=== PATIENT | male | born 1950 | race African-American/Black ===

== ENCOUNTER 2017-09-30 21:31 | Emergency (ER) | payer MEDICARE ==
[2017-09-30 21:58] LABS: ADD MAN DIFF? NO
[2017-09-30 22:01] LABS: BASO % 1 % (0-3); EOS # 0.1 x10^3/uL (0.0-0.7); EOS % 2 % (0-3); HEMATOCRIT 41.7 % (39.0-53.0); HEMOGLOBIN 14.3 g/dL (13.0-17.5); LYMPH # 2.5 x10^3/uL (1.0-4.8); LYMPH % 40 % (24-48); MEAN CORPUSCULAR HEMOGLOBIN 28 pg (25-35); MEAN CORPUSCULAR HGB CONC 34 g/dL (31-37); MEAN CORPUSCULAR VOLUME 82 fL (79-100); MONO # 0.6 x10^3/uL (0.0-1.1); MONO % 10 % (0-9); NEUT % 47 % (31-73); PLATELET COUNT 262 x10^3/uL (140-400); RED BLOOD COUNT 5.07 x10^6/uL (4.30-5.70); RED CELL DISTRIBUTION WIDTH 16.2 % (11.5-14.5); WHITE BLOOD COUNT 6.4 x10^3/uL (4.0-11.0)
[2017-09-30 22:03] LABS: BILIRUBIN,URINE SMALL (NEG); CLARITY,URINE CLEAR; COLOR,URINE YELLOW; GLUCOSE,URINE NEGATIVE (NEG); NITRITE,URINE NEGATIVE (NEG); PH,URINE 5.5; PROTEIN,URINE 30 mg/dL (NEG-TRACE)
[2017-09-30 22:14] LABS: ANION GAP 11 (6-14); BLOOD UREA NITROGEN 22 mg/dL (8-26); BUN/CREATININE RATIO 14 (6-20); CALCIUM 8.8 mg/dL (8.5-10.1); CARBON DIOXIDE 24 mmol/L (21-32); CHLORIDE 105 mmol/L (98-107); CREATININE 1.6 mg/dL (0.7-1.3); GFR 52.1; GLUCOSE 98 mg/dL (70-99); POTASSIUM 4.1 mmol/L (3.5-5.1); SODIUM 140 mmol/L (136-145)
[2017-09-30 22:15] LABS: BACTERIA,URINE 0 /HPF (0-FEW); HYALINE CASTS, URINE FEW /HPF; RBC,URINE OCC /HPF (0-2); SQUAMOUS EPITHELIAL CELL,UR MOD /LPF; WBC,URINE 20-40 /HPF (0-4)
[2017-09-30 22:16] LABS: BARBITURATES NEG (NEG); BENZODIAZEPINES NEG (NEG); CANNABINOIDS NEG (NEG); COCAINE POS (NEG); METHADONE NEG (NEG); OPIATES NEG (NEG); PHENCYCLIDINE NEG (NEG)
[2017-09-30 22:17] LABS: AGAP ISTAT 14 mmol/L (6-14); BUN ISTAT 24 mg/dL (8-26); CHLORIDE ISTAT 105 mmol/L (98-110); CREATININE ISTAT 1.7 mg/dL (0.5-1.4); GLUCOSE ISTAT 93 mg/dL (70-99); HEMATOCRIT ISTAT 44 % (37-52); ION CA ISTAT 1.12 mmol/L (1.13-1.32); POTASSIUM ISTAT 4.1 mmol/L (3.5-5.0); SODIUM ISTAT 143 mmol/L (135-145); TOT CO2 ISTAT 28 mmol/L (23-32)
[2017-09-30 22:19] LABS: AMPHETAMINE/METHAMPHETAMINE NEG (NEG); ETHANOL, URINE POS (NEG)
[2017-09-30 22:19] LABS: ETHANOL 186 mg/dL (0-10)
[2017-09-30 22:21] LABS: ALBUMIN 4.2 g/dL (3.4-5.0); ALBUMIN/GLOBULIN RATIO 1.1 (1.0-1.7); ALK PHOS 66 U/L (46-116); ALT (SGPT) 23 U/L (16-63); AST (SGOT) 30 U/L (15-37); TOTAL BILIRUBIN 0.7 mg/dL (0.2-1.0)
[2017-09-30 22:22] LABS: PARTIAL THROMBOPLASTIN TIME 26 SEC (24-38); PROTHROMBIN TIME PATIENT 12.6 SEC (11.7-14.0)
[2017-09-30 22:24] LABS: TROPONINI < 0.017 ng/mL (0.000-0.055)
[2017-09-30] MEDS ORDERED: CONTRAST GIVEN. MC (22:30)
[2017-09-30] MEDS: IOHEXOL 300 MG/ML 100ML VIAL. IV (22:36)
[2017-10-01] MEDS ORDERED: HEPARIN 25,000UTS/500ML PREMIX 500 ML IV (01:15)
[2017-10-01] MEDS: HEPARIN for IV BOLUS 10,000 UNIT/10 ML VIAL. IV (01:17)
[2017-10-01] MEDS: fentaNYL PF VIAL 100 MCG/2 ML VIAL IV (01:23)
[2017-10-01] MEDS: ONDANSETRON PF 4 MG/2 ML VIAL. IV (01:23)
[2017-10-01] MEDS ORDERED: ANTI-COAG MONITOR BY PHARMACY. MC (01:30)
== END 2017-10-01 01:30 | disposition short-term general hospital (02) ==
LOC: ER 10-01 01:30
DX: F10.129 Alcohol abuse with intoxication, unspecified (principal); S12.400A Unspecified displaced fracture of fifth cervical vertebra, initial encounter for closed fracture; S02.2XXA Fracture of nasal bones, initial encounter for closed fracture; S02.19XA Other fracture of base of skull, initial encounter for closed fracture; F14.10 Cocaine abuse, uncomplicated; I26.99 Other pulmonary embolism without acute cor pulmonale; E78.00 Pure hypercholesterolemia, unspecified; I10 Essential (primary) hypertension; I25.2 Old myocardial infarction; F03.90 Unspecified dementia, unspecified severity, without behavioral disturbance, psychotic disturbance, mood disturbance, and anxiety; Z86.73 Personal history of transient ischemic attack (TIA), and cerebral infarction without residual deficits; W10.8XXA Fall (on) (from) other stairs and steps, initial encounter; Y93.89 Activity, other specified; Y99.8 Other external cause status; Y92.89 Other specified places as the place of occurrence of the external cause
CPT/HCPCS: 36415; 70450; 71260; 72125; 74177; 80047; 80053; 80307; 81001; 83735; 84484; 85025; 85610; 85730; 93005; 96374; 96375; 99285-25; G0480; J1644; J2405; J3010; Q9967

== ENCOUNTER 2021-06-02 17:38 | Inpatient (IN) | payer MEDICARE, OTHER ==
[~2021-06-02] VITALS: Ht 188 cm; Wt 63.8 kg
[~2021-06-02 17:38] MED LIST: AMOX1TAB10 PO; ASPI-482 PO; ATOR10TA60 PO; CARV6.25 PO; FAMO20TA5 PO; FOLI1TAB16 PO; FURO-68 PO; LISI2.5T12 PO; MULT-208 PO; THIA100T8 PO
--- NOTE | 2021-06-02 17:43 | PHYS DOC ---
Past Medical History Past Medical History: CVA, Dementia, High Cholesterol, Hypertension, PR Additional Past Medical Histor: ULCERS Past Surgical History: Appendectomy, Other Additional Past Surgical Histo: ULCER REPAIR,PACEMAKER REMOVED Smoking Status: Current Every Day Smoker Alcohol Use: Heavy Drug Use: None General Adult EDM: Chief Complaint: NEURO SYMPTOMS/DEFICITS HPI: HPI: Patient is a 71 year old male brought in by EMS from a friend's house for altered mental status. He was reportedly hanging out with his friends and talking when he then became verbally unresponsive. The patient is reportedly fully conversant, ambulatory and with a GCS of 15 at baseline. EMS reports that the friends who called and stated that symptoms began about 30 minutes prior to arrival. I was able to elicit from the patient history of strokes, I asked him if it ever had a stroke, and he shook his head yes. I am initially unable to procure any meaningful information from the patient, secondary to aphasia and altered mental status. After CT imaging was performed, initial NIH exam was performed, the patient rapidly improved. Initial NIH score was 8. Within mi nutes of completion of the initial exam, the patient rapidly improved to an NIH of 0. He became briskly awake, alert, fully conversant. Fully oriented, x4. He has no physical complaints. He has normal motor function, 5 out of 5 motor strength in all 4 extremities. He demonstrates no limb ataxia, no pronator drift or dysmetria. He is able to articulate to me that he felt like he was "paralyzed" when he arrived. He does not remember talking to us initially. He does admit to drinking 2-4 beers per day. His daughter reports that he drinks alcohol daily. After his daughter arrived, his mental status improved to his baseline. He does have a history of dementia, but he is not usually confused, he does not manifest any confusion here. I spoke with his daughter, and he reportedly has been compliant with all of his medications. CT imaging does demonstrate multiple strokes of various ages. The patient reports that he knew about 1 stroke, the family is unaware of the multiple strokes, however. He had previously taken warfarin, for atrial fibrillation, he has not been taking this for some time. Denies headache, dizziness, chest pain, dyspnea, palpitations, abdominal pain, nausea or vomiting. He subjectively denies any sensory changes, numbness or tingling symptoms. Review of Systems: Review of Systems: Review of systems is limited secondary to patient's clinical condition. Please see HPI. Heart Score: C/O Chest Pain: No Risk Factors: Risk Factors: DM, Current or recent (<one month) smoker, HTN, HLP, family history of CAD, obesity. Risk Scores: Score 0 - 3: 2.5% MACE over next 6 weeks - Discharge Home Score 4 - 6: 20.3% MACE over next 6 weeks - Admit for Clinical Observation Score 7 - 10: 72.7% MACE over next 6 weeks - Early Invasive Strategies Allergies: Allergies: Allergies Coded Allergies Type Severity Reaction Last Updated Verified No Known Drug Allergies 12/27/14 No Physical Exam: PE: Constitutional: He is relatively frail and chronically ill-appearing. Nontoxic. HENT: Normocephalic, atraumatic, oropharynx patent and clear, mucous membranes are moist. TMs are clear bilaterally. Nares are patent clear without rhinorrhea epistaxis. Eyes: PERRL, EOMI, conjunctiva normal, no discharge. No nystagmus. No scleral icterus. Neck: Normal range of motion, no tenderness, supple, no stridor. Meningismus. Trachea midline, no JVD Cardiovascular:Heart rate regular rhythm, was 2 radial and +2 posterior tibial pulses bilaterally. Lungs & Thorax: Bilateral breath sounds clear to auscultation [] Abdomen: Abdomen is soft, nondistended, nontender to palpation. No palpable masses organomegaly. No palpable pulsatile mass. No CVA tenderness. Skin: Warm, dry, no erythema, no rash. No open wounds. Back: No tenderness, no CVA tenderness. Range of motion. No deformity. Extremities: No tenderness, no cyanosis, no clubbing, ROM intact, no edema, no calf tenderness, pelvis is stable. Neurologic: Initially, the patient is spontaneously awake, turning his head and eyes toward the right, demonstrating aphasia, moves bilateral upper extremities equally, no drift of the upper extremities, normal motor strength upper extremities, bilateral ribs are equal. Bilateral and symmetric lower extremity weakness, with some resistance against gravity. Rather quickly, however the patient become spontaneously awake, alert, fully oriented x4, cranial nerves II through XII grossly intact. 5 out of 5 motor strength all 4 extremities. Sensation is intact. Gross visual pelletier are normal. Speech is clear and fluent. He manifest no evidence of dysarthria or aphasia. Psychologic: Affect normal, judgement normal, mood normal. [] EKG: EKG: EKG is interpreted at 1752 Rhythm is sinus Rate is 60 bpm [place] is normal No STEMI LBBB (old) Radiology/Procedures: Radiology/Procedures: IMAGING REPORT Signed PATIENT: MANA BUNDY ACCOUNT: [id number] : 1950 LOCATION: ER AGE: 71 SEX: M EXAM STATUS: PRE ER ORD. PHYSICIAN: OZIEL MICHAELS DO REASON: code stroke AMS PROCEDURE: CT CODE STROKE HEAD WO EXAM: CT HEAD WITHOUT CONTRAST. HISTORY: Code stroke. Altered mental status, unresponsive. TECHNIQUE: Computed tomography of the head was performed without intravenous contrast. *One or more of the following individualized dose reduction techniques were utilized for this examination: 1. Automated exposure control. 2. Adjustment of the mA and/or kV according to patient size. 3. Use of iterative reconstruction technique. COMPARISON: 09/30/2017. FINDINGS: There is no intracranial hemorrhage. There are multiple chronic infarcts. The largest cyst is within the left middle cerebral artery territory posteriorly measuring 4.5 x 2.6 cm. Multiple smaller infarcts are noted more anteriorly in the middle cerebral artery territories bilaterally. Another is noted in the right occipital/posterior temporal lobe. Additional chronic infarcts are noted within the cerebellar hemispheres on the right greater than left. The ventricles are normal in size and position. The visualized paranasal sinuses appear clear. The orbits are unremarkable. The temporal bones are unremarkable. The calvarium reveals no suspicious lesions. A lipoma along the occipital scalp measures 4.1 x 1.1 cm transaxially. IMPRESSION: 1. No intracranial hemorrhage. 2. Multiple small to moderate chronic infarcts throughout both middle cerebral artery territories, the right posterior cerebral artery territory, and the right greater than left cerebellar hemispheres. 3. Mild atrophy and chronic microangiopathic white matter change. These findings were called to Dr. Michaels by Chano Choudhury on 06/02/2021 at 5:49 PM. FOR INTERNAL CODING PURPOSES RESULT CODE: (C) Electronically signed by: Amairani Choudhury MD (06/02/2021 5:55 PM) [id number] DICTATED and SIGNED BY: MERNA CHOUDHURY MD DATE: 06/02/21 [id number] 0 IMAGING REPORT Signed PATIENT: MANA BUNDY ACCOUNT: [id number] : 1950 LOCATION: ER AGE: 71 SEX: M EXAM STATUS: REG ER ORD. PHYSICIAN: OZIEL MICHAELS DO REASON: code stroke PROCEDURE: PORTABLE CHEST 1V EXAM: CHEST ONE VIEW. HISTORY: Cerebrovascular accident, aphasia. COMPARISON: 03/27/2015. FINDINGS: A frontal view of the chest is obtained. There are no confluent infiltrates. There is no pneumothorax or pleural effusion. The heart is not enlarged. There are atherosclerotic calcifications of the aorta. IMPRESSION: 1. No confluent infiltrates. Electronically signed by: Amairani Choudhury MD (06/02/2021 6:51 PM) [id number] DICTATED and SIGNED BY: MERNA CHOUDHURY MD DATE: 06/02/21 [id number] 0 Course & Med Decision Making: Course & Med Decision Making Pertinent Labs and Imaging studies reviewed. (See chart for details) I have spoken with Dr. Felipe of neurology initially when the patient is still manifested neurologic deficits, he recommended TPA and a CT angiogram of the head and neck. The patient's clinical condition rapidly improved, almost immediately after I spoke with neurology. Therefore the decision was made to withhold TPA at this time. CTA of the head neck is ordered and pending at time of admission, Dr. Peter accepts the patient for admission. The patient has an NIH of 0, has no physical complaints or discomfort, appears to be resting comfortably. I have recommended hospitalization, he understands and is comfortable with the plan of care. His daughter is appraised of this as well, she is also comfortable with the plan of care. Dragon Disclaimer: Dragon Disclaimer: This electronic medical record was generated, in whole or in part, using a voice recognition dictation system. Departure Departure Impression: Primary Impression: TIA (transient ischemic attack) Additional Impressions: History of CVA (cerebrovascular accident) Alcohol use Disposition: ADMITTED INPATIENT Admitting Physician: RICKY (Dr. Peter) Condition: STABLE Referrals: VILLA MONTES MD (PCP) OZIEL MICHAELS DO Jun 02, 2021 17:43
--- NOTE | 2021-06-02 17:57 | RAD ---
EXAM: CT HEAD WITHOUT CONTRAST. HISTORY: Code stroke. Altered mental status, unresponsive. TECHNIQUE: Computed tomography of the head was performed without intravenous contrast. *One or more o f the following individualized dose reduction techniques were utilized for this examination: 1. Automated exposure control. 2. Adjustment of the mA and/or kV according to patient size. 3. Use of iterative reconstruction technique. COMPARISON: 09/30/2017. FINDINGS: There is no intracranial hemorrhage. There are multiple chronic infarcts. The largest cyst is within the left middle cerebral artery territory posteriorly measuring 4.5 x 2.6 cm. Multiple smal ler infarcts are noted more anteriorly in the middle cerebral artery territories bilaterally. Another is noted in the right occipital/posterior temporal lobe. Additional chronic infarcts are noted withi n the cerebellar hemispheres on the right greater than left. The ventricles are normal in size and po sition. The visualized paranasal sinuses appear clear. The orbits are unremarkable. The temporal bones are un remarkable. The calvarium reveals no suspicious lesions. A lipoma along the occipital scalp measures 4.1 x 1.1 cm transaxially. IMPRESSION: 1. No intracranial hemorrhage. 2. Multiple small to moderate chronic infarcts throughout both middle cerebral artery territories, th e right posterior cerebral artery territory, and the right greater than left cerebellar hemispheres. 3. Mild atrophy and chronic microangiopathic white matter change. These findings were called to Dr. Springer by Chano Choudhury on 06/02/2021 at 5:49 PM. FOR INTERNAL CODING PURPOSES RESULT CODE: (C) Electronically signed by: Amairani Choudhury MD (06/02/2021 5:55 PM) [address]
[2021-06-02 18:23] LABS: BASO % 1 % (0-3); EOS % 1 % (0-3); HEMATOCRIT 38.7 % (39.0-53.0); HEMOGLOBIN 12.9 g/dL (13.0-17.5); LYMPH # 1.4 x10^3/uL (1.0-4.8); LYMPH % 26 % (24-48); MEAN CORPUSCULAR HEMOGLOBIN 27 pg (25-35); MEAN CORPUSCULAR HGB CONC 33 g/dL (31-37); MEAN CORPUSCULAR VOLUME 80 fL (79-100); MONO # 0.3 x10^3/uL (0.0-1.1); MONO % 5 % (0-9); NEUT # 3.7 x10^3/uL (1.8-7.7); NEUT % 67 % (31-73); PLATELET COUNT 198 x10^3/uL (140-400); RED BLOOD COUNT 4.86 x10^6/uL (4.30-5.70); RED CELL DISTRIBUTION WIDTH 16.7 % (11.5-14.5); WHITE BLOOD COUNT 5.5 x10^3/uL (4.0-11.0)
[2021-06-02 18:26] LABS: PROTHROMBIN TIME PATIENT 13.1 SEC (11.7-14.0)
[2021-06-02 18:34] LABS: CALCIUM 8.9 mg/dL (8.5-10.1); CREATININE 1.1 mg/dL (0.7-1.3); GFR 79.4; POTASSIUM 4.3 mmol/L (3.5-5.1)
[2021-06-02 18:40] LABS: ALBUMIN/GLOBULIN RATIO 1.2 (1.0-1.7); TOTAL BILIRUBIN 0.5 mg/dL (0.2-1.0); TOTAL PROTEIN 7.4 g/dL (6.4-8.2)
--- NOTE | 2021-06-02 18:53 | RAD ---
EXAM: CHEST ONE VIEW. HISTORY: Cerebrovascular accident, aphasia. COMPARISON: 03/27/2015. FINDINGS: A frontal view of the chest is obtained. There are no confluent infiltrates. There is no pneumothorax or pleural effusion. The heart is not en larged. There are atherosclerotic calcifications of the aorta. IMPRESSION: 1. No confluent infiltrates. Electronically signed by: Amairani Choudhury MD (06/02/2021 6:51 PM) [id number]
[2021-06-02] MEDS ORDERED: CONTRAST GIVEN. MC PRN (19:00)
[2021-06-02] MEDS ORDERED: IOHEXOL 300 MG/ML 100ML VIAL. IV ONE (19:00)
[2021-06-02] MEDS ORDERED: ACETAMINOPHEN 325 MG TABLET. PO PRN (19:30)
[2021-06-02] MEDS ORDERED: ONDANSETRON PF 4 MG/2 ML VIAL. IVP PRN (19:30)
[2021-06-02] MEDS ORDERED: ASPIRIN ENTERIC COATED 325 MG TABLET.DR. PO ONE (19:30)
[2021-06-02] MEDS ORDERED: hydrALAZINE 20 MG/ML VIAL. IVP ONE (19:30)
--- NOTE | 2021-06-02 19:32 | RAD ---
EXAM: 1. CTA HEAD WITH AND WITHOUT CONTRAST. 2. CTA NECK WITH AND WITHOUT CONTRAST. HISTORY: Weakness, aphasia. TECHNIQUE: Computed tomographic angiography of the head and neck was performed before and after the i ntravenous administration of iodinated contrast. Three-dimensional reconstructions were also performe d. One or more of the following individualized dose reduction techniques were utilized for this exami nation: 1. Automated exposure control. 2. Adjustment of the mA and/or kV according to patient size. 3. Use of iterative reconstruction technique. COMPARISON: Today's head CT. FINDINGS: Angiographic findings: The aortic arch has a typical branching pattern. There is no arch vessel steno sis. Both common carotid arteries are patent without stenosis. Both internal carotid arteries are patent w ithout stenosis. The external carotid systems are patent. The vertebral arteries are patent. The basilar artery is patent. Both posterior cerebral arteries are patent. The posterior communicatin g arteries are visualized. The intracranial internal carotid arteries demonstrate no stenosis. The middle cerebral arteries are patent. The anterior cerebral arteries are patent. The anterior communicating artery is visualized. Nonangiographic findings: There is no intracranial hemorrhage. Multiple chronic infarcts are noted wi thin the left greater than right middle cerebral artery territories, the right temporal occipital lob e, and the right greater than left cerebellar hemispheres. Refer to today's CT for more detail. Promi nence of the lateral ventricles and hemispheric sulci indicate mild atrophy. The paranasal sinuses appear clear. The orbits are unremarkable. The temporal bones are unremarkable. Bone windows reveal no suspicious lesions. The lung apices demonstrate no acute abnormality. The parotid glands and submandibular glands are unremarkable. The thyroid gland demonstrates no suspi cious lesions. There are no laryngeal or pharyngeal masses. There are no pathologically enlarged lymph nodes. IMPRESSION: 1. No hemodynamically significant cervical arterial stenosis. 2. No intracranial stenosis, aneurysm or large vessel occlusion. 3. Minimal atherosclerotic changes for patient age. Correlate for source of showering emboli or in th e distal microangiopathy as a cause of multiple bilateral chronic infarcts. PQRS Compliance Statement - Stenosis calculations for CT, MR and conventional angiography are based u jennifer measurement of the distal ICA diameter in accordance with the NASCET methodology. Stenosis calcu lations for carotid ultrasound studies are derived from validated velocity criteria which are known t o correlate with the NASCET methodology. Electronically signed by: Amairani Choudhury MD (06/02/2021 7:30 PM) [id number]
[2021-06-02 20:00] VITALS: BP 173/85
--- NOTE | 2021-06-02 20:04 | PDOC1 ---
History and Physical Date of Admission Date of Admission DATE: 06/02/21 TIME: 19:56 Source Source: Caregiver (daughter ), Chart review, Patient History of Present Illness History of Present Illness Mr. Reina is a 71 year old male admit from ER after eval for altered mental status. According to his daughter, he walked about 4 miles to a friends house, and was drinking and smoking as he usually does. His other daughter didn't know he had even left until the friends called that they had called an ambulance. Friends called EMS when Jose Guadalupe became unresponsive and would not respond. he has recent cognitive decline noted by his primary care at , but never had any neuro imaging. Per EMS, he had 30 min of symptoms and could not talk and could barely move, over time he is more alet and responsive and talkative. HIs daughter does assist with a lot of the history, he could not remember meds or who his doctor was. Initial NIH score was 8 and he could hardly talk, this is now better and NIH score of 0. Fully oriented, x4 now and feels well. he has noted muscle wasting of his thighs, but his daughter says he can really walk a long way but does nto drive due to cognitive decline, She says he smokes and drinks "a lot" - alcohol level here only 55 after drinking Past Medical History Cardiovascular: CAD, CHF, HTN, VT, Hyperlipidemia Pulmonary: COPD CENTRAL NERVOUS SYSTEM: Other GI: Peptic Ulcer disease Heme/Onc: No pertinent hx Hepatobiliary: No pertinent hx Musculoskeletal: Osteoarthritis, Other Rheumatologic: No pertinent hx Infectious disease: No pertinent hx Renal/: No pertinent hx Endocrine: No pertinent hx Past Surgical History Past Surgical History: Pacemaker Family History Family History: Hypertension Family History: Other Social History Smoke: 1 pack per day ALCOHOL: heavy Drugs: Other (poss cocaine) Current Problem List Problem List Problems Medical Problems: (1) Alcohol use Status: Acute (2) History of CVA (cerebrovascular accident) Status: Acute (3) TIA (transient ischemic attack) Status: Acute Current Medications Current Medications Current Medications Iohexol (Omnipaque 300 Mg/ml) 75 ml 1X ONCE IV Last administered on 06/02/21at 19:12; Start 06/02/21 at 19:00; Stop 06/02/21 at 19:01; Status DC Info (CONTRAST GIVEN -- Rx MONITORING) 1 each PRN DAILY PRN MC SEE COMMENTS; Start 06/02/21 at 19:00; Stop 06/04/21 at 18:59 Aspirin (Ecotrin) 325 mg 1X ONCE PO ; Start 06/02/21 at 19:30; Stop 06/02/21 at 19:31; Status DC Hydralazine HCl (Apresoline Inj) 10 mg 1X ONCE IVP Last administered on 06/02/21at 19:28; Start 06/02/21 at 19:30; Stop 06/02/21 at 19:31; Status DC Ondansetron HCl (Zofran) 4 mg PRN Q8HRS PRN IVP NAUSEA/VOMITING; Start 06/02/21 at 19:30; Stop 06/03/21 at 19:29 Dextrose/Sodium Chloride 1,000 ml @ 100 mls/hr Q10H IV ; Start 06/02/21 at 20:00 Acetaminophen (Tylenol) 650 mg PRN Q6HRS PRN PO MILD PAIN / TEMP > 100.3'F; Start 06/02/21 at 19:30 Active Scripts Active Famotidine 20 Mg Tablet 20 Mg PO DAILY Atorvastatin Calcium 10 Mg Tablet 10 Mg PO QHS Amox Tr-K Clv 500-125 Mg Tab (Amoxicillin/Potassium Clav) 1 Each Tablet 1 Tab PO BID Lisinopril 2.5 Mg Tablet 2.5 Mg PO DAILY Reported Thiamine Hcl 100 Mg Tablet 100 Mg PO Lasix (Furosemide) 40 Mg Tablet 1 Tab PO DAILY Folic Acid 1 Mg Tablet 1 Tab PO DAILY Coreg (Carvedilol) 6.25 Mg Tablet 1 Tab PO BID Multi-Day Vitamins (Multivitamin) 1 Each Tablet 1 Tab PO DAILY Aspir 81 (Aspirin) 81 Mg Tablet.dr 1 Tab PO DAILY Allergies Allergies: Coded Allergies: No Known Drug Allergies (Unverified , 12/27/14) ROS General: YES: Fatigue; No: Chills, Night Sweats, Malaise, Appetite, Other PSYCHOLOGICAL ROS: No: Anxiety, Behavioral Disorder, Concentration difficultie, Decreased libido, Depression, Disorientation, Hallucinations, Hostility, Irritablity, Memory difficulties, Mood Swings, Obsessive thoughts, Physical abuse, Sexual abuse, Sleep disturbances, Suicidal ideation, Other Eyes: No Blurry vision, No Decreased vision, No Double vision, No Dry eyes, No Excessive tearing, No Eye Pain, No Itchy Eyes, No Loss of vision, No Photophobia, No Scotomata, No Uses contacts, No Uses glasses, No Other HEENT: No: Heacaches, Visual Changes, Hearing change, Nasal congestion, Nasal discharge, Oral lesions, Sinus pain, Sore Throat, Epistaxis, Sneezing, Snoring, Tinnitus, Vertigo, Vocal changes, Other Respiratory: No: Cough, Hemoptysis, Orthopnea, Pleuritic Pain, Shortness of breath, SOB with excertion, Sputum Changes, Stridor, Tachypnea, Wheezing, Other Cardiovascular: No Chest Pain, No Palpitations, No Orthopnea, No Paroxysmal Noc. Dyspnea, No Edema, No Lt Headedness, No Other Gastrointestinal: No Nausea, No Vomiting, No Abdominal Pain, No Diarrhea, No Constipation, No Melena, No Hematochezia, No Other Genitourinary: No Dysuria, No Frequency, No Incontinence, No Hematuria, No Retention, No Discharge, No Urgency, No Pain, No Flank Pain, No Other, No , No , No , No , No , No , No Musculoskeletal: No Gait Disturbance, No Joint Pain, No Joint Stiffness, No Joint Swelling, No Muscle Pain, No Muscular Weakness, No Pain In:, No Swelling In:, No Other Neurological: No Behavorial Changes, No Bowel/Bladder ControlChng, No Confusion, No Dizziness, No Gait Disturbance, No Headaches, No Impaired Coord/balance, No Memory Loss, No Numbness/Tingling, No Seizures, No Speech Problems, No Tremors, No Visual Changes, No Weakness, No Other Skin: No Dry Skin, No Eczema, No Hair Changes, No Lumps, No Mole Changes, No Mottling, No Nail Changes, No Pruritus, No Rash, No Skin Lesion Changes, No Other, No Acne Physical Exam General: Alert, Oriented X3, Cooperative, No acute distress HEENT: Atraumatic, PERRLA, Other (poor dentition, only a few teeth, no lesion, membranes moist) Lungs: Clear to auscultation, Normal air movement Heart: no gallops, no murmurs Extremities: No edema, Other (muscle wasting of thighs) Skin: No rashes, No significant lesion Neuro: Normal speech, Cranial nerves 3-12 NL Psych/Mental Status: Mood NL Vitals Vitals Vital Signs Date Time Temp Pulse Resp B/P (MAP) Pulse Ox O2 Delivery O2 Flow Rate FiO2 06/02/21 19:28 65 181/106 06/02/21 19:08 16 100 Room Air 06/02/21 17:38 96.0 96.0 Labs Labs Laboratory Tests Test 06/02/21 17:53 06/02/21 17:55 06/02/21 18:15 06/02/21 19:19 Glucose (Fingerstick) 91 mg/dL (70-99) 59 mg/dL (70-99) Prothrombin Time 13.1 SEC (11.7-14.0) Prothromb Time International Ratio 1.0 (0.8-1.1) Activated Partial Thromboplast Time 21 SEC (24-38) White Blood Count 5.5 x10^3/uL (4.0-11.0) Red Blood Count 4.86 x10^6/uL (4.30-5.70) Hemoglobin 12.9 g/dL (13.0-17.5) Hematocrit 38.7 % (39.0-53.0) Mean Corpuscular Volume 80 fL (79-100) Mean Corpuscular Hemoglobin 27 pg (25-35) Mean Corpuscular Hemoglobin Concent 33 g/dL (31-37) Red Cell Distribution Width 16.7 % (11.5-14.5) Platelet Count 198 x10^3/uL (140-400) Neutrophils (%) (Auto) 67 % (31-73) Lymphocytes (%) (Auto) 26 % (24-48) Monocytes (%) (Auto) 5 % (0-9) Eosinophils (%) (Auto) 1 % (0-3) Basophils (%) (Auto) 1 % (0-3) Neutrophils # (Auto) 3.7 x10^3/uL (1.8-7.7) Lymphocytes # (Auto) 1.4 x10^3/uL (1.0-4.8) Monocytes # (Auto) 0.3 x10^3/uL (0.0-1.1) Eosinophils # (Auto) 0.0 x10^3/uL (0.0-0.7) Basophils # (Auto) 0.0 x10^3/uL (0.0-0.2) Sodium Level 143 mmol/L (136-145) Potassium Level 4.3 mmol/L (3.5-5.1) Chloride Level 104 mmol/L (98-107) Carbon Dioxide Level 28 mmol/L (21-32) Anion Gap 11 (6-14) Blood Urea Nitrogen 20 mg/dL (8-26) Creatinine 1.1 mg/dL (0.7-1.3) Estimated GFR (Cockcroft-Gault) 79.4 BUN/Creatinine Ratio 18 (6-20) Glucose Level 108 mg/dL (70-99) Calcium Level 8.9 mg/dL (8.5-10.1) Total Bilirubin 0.5 mg/dL (0.2-1.0) Aspartate Amino Transf (AST/SGOT) 20 U/L (15-37) Alanine Aminotransferase (ALT/SGPT) 22 U/L (16-63) Alkaline Phosphatase 44 U/L (46-116) Ammonia 11 mcmol/L (11-34) Troponin I High Sensitivity 8 ng/L (4-75) Total Protein 7.4 g/dL (6.4-8.2) Albumin 4.0 g/dL (3.4-5.0) Albumin/Globulin Ratio 1.2 (1.0-1.7) Ethyl Alcohol Level 55 mg/dL (0-10) Laboratory Tests Test 06/02/21 17:53 06/02/21 17:55 06/02/21 18:15 06/02/21 19:19 Glucose (Fingerstick) 91 mg/dL (70-99) 59 mg/dL (70-99) Prothrombin Time 13.1 SEC (11.7-14.0) Prothromb Time International Ratio 1.0 (0.8-1.1) Activated Partial Thromboplast Time 21 SEC (24-38) White Blood Count 5.5 x10^3/uL (4.0-11.0) Red Blood Count 4.86 x10^6/uL (4.30-5.70) Hemoglobin 12.9 g/dL (13.0-17.5) Hematocrit 38.7 % (39.0-53.0) Mean Corpuscular Volume 80 fL (79-100) Mean Corpuscular Hemoglobin 27 pg (25-35) Mean Corpuscular Hemoglobin Concent 33 g/dL (31-37) Red Cell Distribution Width 16.7 % (11.5-14.5) Platelet Count 198 x10^3/uL (140-400) Neutrophils (%) (Auto) 67 % (31-73) Lymphocytes (%) (Auto) 26 % (24-48) Monocytes (%) (Auto) 5 % (0-9) Eosinophils (%) (Auto) 1 % (0-3) Basophils (%) (Auto) 1 % (0-3) Neutrophils # (Auto) 3.7 x10^3/uL (1.8-7.7) Lymphocytes # (Auto) 1.4 x10^3/uL (1.0-4.8) Monocytes # (Auto) 0.3 x10^3/uL (0.0-1.1) Eosinophils # (Auto) 0.0 x10^3/uL (0.0-0.7) Basophils # (Auto) 0.0 x10^3/uL (0.0-0.2) Sodium Level 143 mmol/L (136-145) Potassium Level 4.3 mmol/L (3.5-5.1) Chloride Level 104 mmol/L (98-107) Carbon Dioxide Level 28 mmol/L (21-32) Anion Gap 11 (6-14) Blood Urea Nitrogen 20 mg/dL (8-26) Creatinine 1.1 mg/dL (0.7-1.3) Estimated GFR (Cockcroft-Gault) 79.4 BUN/Creatinine Ratio 18 (6-20) Glucose Level 108 mg/dL (70-99) Calcium Level 8.9 mg/dL (8.5-10.1) Total Bilirubin 0.5 mg/dL (0.2-1.0) Aspartate Amino Transf (AST/SGOT) 20 U/L (15-37) Alanine Aminotransferase (ALT/SGPT) 22 U/L (16-63) Alkaline Phosphatase 44 U/L (46-116) Ammonia 11 mcmol/L (11-34) Troponin I High Sensitivity 8 ng/L (4-75) Total Protein 7.4 g/dL (6.4-8.2) Albumin 4.0 g/dL (3.4-5.0) Albumin/Globulin Ratio 1.2 (1.0-1.7) Ethyl Alcohol Level 55 mg/dL (0-10) VTE Prophylaxis Ordered VTE Prophylaxis Devices: Yes VTE Pharmacological Prophylaxi: Yes Assessment/Plan Assessment/Plan TIA, prior CVA seen on imaging, consult Neuro, echo, carotid, lipids Alcohol overuse disorder, thiamine and folate hypoglycemia, D5 IV fluid ordered, will try to give thiamine before. tobacco use disorder weakness, muscle wasting htn Justifications for Admission Other Justification CRICKET KOHLI MD Jun 02, 2021 20:04
[2021-06-02 20:26] LABS: BILIRUBIN,URINE NEGATIVE (NEG); CLARITY,URINE CLEAR; COLOR,URINE YELLOW; NITRITE,URINE NEGATIVE (NEG); PROTEIN,URINE NEGATIVE (NEG-TRACE); UROBILINOGEN,URINE 0.2 mg/dL (0.2 mg/dL)
[2021-06-02 20:29] LABS: BACTERIA,URINE FEW /HPF (0-FEW)
[2021-06-02 20:30] LABS: BARBITURATES NEG (NEG); BENZODIAZEPINES NEG (NEG); CANNABINOIDS POS (NEG); COCAINE POS (NEG); METHADONE NEG (NEG); OPIATES NEG (NEG); PHENCYCLIDINE NEG (NEG)
[2021-06-02 20:31] LABS: AMPHETAMINE/METHAMPHETAMINE NEG (NEG)
[2021-06-02] MEDS ORDERED: BISM1CAP PO (20:55)
[2021-06-02] MEDS ORDERED: DONE10TA7 PO (21:00)
[2021-06-02] MEDS ORDERED: THIAMINE INJ 100 MG in IV DEXTROSE 5% 50 ML IV ONE (21:00)
[2021-06-02] MEDS ORDERED: FURO20TA3 PO (21:00)
[2021-06-02] MEDS ORDERED: CYAN100016 SL (21:00)
[2021-06-02] MEDS ORDERED: LISI20TA18 PO (21:01)
[2021-06-02] MEDS ORDERED: OMEP20TA63 PO (21:04)
[2021-06-02] MEDS ORDERED: THIA100T22 PO (21:04)
[2021-06-02] MEDS ORDERED: SPIR25TA5 PO (21:04)
[2021-06-02] MEDS ORDERED: ERGO2000 PO (21:06)
--- NOTE | 2021-06-02 21:10 | EKG ---
[facility] [address] [place] [address] Test Date: 2021-06-02 Test Time: 17:51:08 Pat Name: MANA BUNDY Department: Room: Gender: M Health Psychologist: : 1950 Requested By: OZIEL MICHAELS Order Number: [id number] Reading MD: Measurements Intervals [place] Rate: 60 P: 52 MI: 186 QRS: 42 QRSD: 146 T: -40 QT: 460 QTc: 460 Interpretive Statements SINUS RHYTHM LEFT ATRIAL ABNORMALITY LEFT BUNDLE BRANCH BLOCK ABNORMAL ECG RI6.02 No previous ECG available for comparison
[2021-06-02] MEDS: FOLIC/VIT B COMP W-C (RENAL) TABLET. PO SCH (21:24)
[2021-06-02] MEDS: THIAMINE 100 MG TABLET. PO SCH (21:24)
[2021-06-02] MEDS: ATORVASTATIN CALCIUM 10 MG TABLET. PO SCH (21:24)
[2021-06-02] MEDS: IV DEXTROSE 5 %-0.45 % NACL 1,000 ML IV SCH (21:25)
[2021-06-02 23:00] VITALS: BP 120/69
[2021-06-03 03:00] VITALS: BP 100/68
[2021-06-03] MEDS: IV DEXTROSE 5 %-0.45 % NACL 1,000 ML IV SCH (06:00)
[2021-06-03 06:04] LABS: BASO % 0 % (0-3); EOS # 0.1 x10^3/uL (0.0-0.7); EOS % 1 % (0-3); HEMATOCRIT 34.3 % (39.0-53.0); HEMOGLOBIN 11.4 g/dL (13.0-17.5); LYMPH # 1.9 x10^3/uL (1.0-4.8); LYMPH % 29 % (24-48); MEAN CORPUSCULAR HEMOGLOBIN 26 pg (25-35); MEAN CORPUSCULAR HGB CONC 33 g/dL (31-37); MEAN CORPUSCULAR VOLUME 79 fL (79-100); MONO # 0.5 x10^3/uL (0.0-1.1); MONO % 8 % (0-9); NEUT # 4.1 x10^3/uL (1.8-7.7); NEUT % 62 % (31-73); PLATELET COUNT 229 x10^3/uL (140-400); RED BLOOD COUNT 4.36 x10^6/uL (4.30-5.70); RED CELL DISTRIBUTION WIDTH 16.7 % (11.5-14.5); WHITE BLOOD COUNT 6.6 x10^3/uL (4.0-11.0)
[2021-06-03 06:13] LABS: ALBUMIN 3.5 g/dL (3.4-5.0); ALBUMIN/GLOBULIN RATIO 1.1 (1.0-1.7); CALCIUM 8.3 mg/dL (8.5-10.1); CREATININE 1.1 mg/dL (0.7-1.3); GFR 79.4; POTASSIUM 3.9 mmol/L (3.5-5.1); TOTAL BILIRUBIN 0.7 mg/dL (0.2-1.0); TOTAL PROTEIN 6.6 g/dL (6.4-8.2)
[2021-06-03 06:14] LABS: CHOLESTEROL/HDL RATIO 2.1
[2021-06-03 07:00] VITALS: BP 105/57
[2021-06-03] MEDS: ASPIRIN ENTERIC COATED 81 MG TABLET.DR. PO SCH (08:59)
[2021-06-03] MEDS: THIAMINE 100 MG TABLET. PO SCH (08:59)
[2021-06-03] MEDS: MULTIVITAMIN with MINERAL TABLET. PO SCH (09:00)
[2021-06-03] MEDS: CARVEDILOL 6.25 MG TABLET. PO SCH ×2 (09:00→16:02)
[2021-06-03] MEDS: LISINOPRIL 5 MG TABLET. PO SCH (09:00)
[2021-06-03] MEDS: FOLIC/VIT B COMP W-C (RENAL) TABLET. PO SCH (09:00)
[2021-06-03] MEDS: FAMOTIDINE 20 MG TABLET. PO SCH (09:01)
[2021-06-03 10:33] VITALS: BP 110/72
--- NOTE | 2021-06-03 12:32 | NUR ---
Bedside Swallow evaluation completed. Please refer to full evaluation in intervention section for additional information. Impressions: Functional oropharyngeal swallow w/ decreased mastication efficiency r/t poor dentition/mostly edentulous status. No s/s aspiration. Swallow appeared timely and functional. Pt denies difficulty swallowing. Pt states yesterday he had trouble talking and moving but today he is fine, has no problems. Communication screening: pt able to name objects, follow 3 step directions, count forward and backwards, uses complete grammatical sentences, problem solves basic needs, recalls 4/4 items immediately, and 3/4 items w/ 1 minute delay. Recommendations: Continue regular diet and thin liquids. No additional speech therapy indicated at this time.
[2021-06-03 15:00] VITALS: BP 98/61
--- NOTE | 2021-06-03 15:40 | PDOC ---
[employer] PROGRESS NOTE Date of Service DOS: DATE: 06/03/21 TIME: 15:38 Chief Complaint Chief Complaint TIA, prior CVA seen on imaging w./ Multiple chronic infarcts , consult Neuro, echo, lipids Alcohol overuse disorder, thiamine and folategiven Cocaine abuse, THC use hypoglycemia, improved, tobacco use disorder weakness, muscle wasting htn cognitive decline or vascular dementia History of Present Illness History of Present Illness feels well, str better, feels like himself, would like to DC soon he allowed his daughter to be present when I discussed his care, and discussed the substance abuse and she was upset about him living with her. Vitals/I&O Vitals/I&O: Vital Signs Date Time Temp Pulse Resp B/P (MAP) Pulse Ox O2 Delivery O2 Flow Rate FiO2 06/03/21 10:33 97.9 58 20 110/72 (85) 100 Room Air 97.9 I & O 06/02/21 06/02/21 06/03/21 15:00 23:00 07:00 Intake Total 120 ml 240 ml Output Total 575 ml Balance 120 ml -335 ml Physical Exam General: Alert, Oriented X3, Cooperative, No acute distress Heart: Normal S1, Gallops Lungs: Crackles Abdomen: Normal bowel sounds Extremities: No cyanosis, No edema, Other (muscle wasting of thighs) Skin: No rashes, No significant lesion Labs Labs: Laboratory Tests Test 06/02/21 17:53 06/02/21 17:55 06/02/21 18:15 06/02/21 19:19 Glucose (Fingerstick) 91 mg/dL (70-99) 59 mg/dL (70-99) Prothrombin Time 13.1 SEC (11.7-14.0) Prothromb Time International Ratio 1.0 (0.8-1.1) Activated Partial Thromboplast Time 21 SEC (24-38) White Blood Count 5.5 x10^3/uL (4.0-11.0) Red Blood Count 4.86 x10^6/uL (4.30-5.70) Hemoglobin 12.9 g/dL (13.0-17.5) Hematocrit 38.7 % (39.0-53.0) Mean Corpuscular Volume 80 fL (79-100) Mean Corpuscular Hemoglobin 27 pg (25-35) Mean Corpuscular Hemoglobin Concent 33 g/dL (31-37) Red Cell Distribution Width 16.7 % (11.5-14.5) Platelet Count 198 x10^3/uL (140-400) Neutrophils (%) (Auto) 67 % (31-73) Lymphocytes (%) (Auto) 26 % (24-48) Monocytes (%) (Auto) 5 % (0-9) Eosinophils (%) (Auto) 1 % (0-3) Basophils (%) (Auto) 1 % (0-3) Neutrophils # (Auto) 3.7 x10^3/uL (1.8-7.7) Lymphocytes # (Auto) 1.4 x10^3/uL (1.0-4.8) Monocytes # (Auto) 0.3 x10^3/uL (0.0-1.1) Eosinophils # (Auto) 0.0 x10^3/uL (0.0-0.7) Basophils # (Auto) 0.0 x10^3/uL (0.0-0.2) Sodium Level 143 mmol/L (136-145) Potassium Level 4.3 mmol/L (3.5-5.1) Chloride Level 104 mmol/L (98-107) Carbon Dioxide Level 28 mmol/L (21-32) Anion Gap 11 (6-14) Blood Urea Nitrogen 20 mg/dL (8-26) Creatinine 1.1 mg/dL (0.7-1.3) Estimated GFR (Cockcroft-Gault) 79.4 BUN/Creatinine Ratio 18 (6-20) Glucose Level 108 mg/dL (70-99) Calcium Level 8.9 mg/dL (8.5-10.1) Total Bilirubin 0.5 mg/dL (0.2-1.0) Aspartate Amino Transf (AST/SGOT) 20 U/L (15-37) Alanine Aminotransferase (ALT/SGPT) 22 U/L (16-63) Alkaline Phosphatase 44 U/L (46-116) Ammonia 11 mcmol/L (11-34) Troponin I High Sensitivity 8 ng/L (4-75) Total Protein 7.4 g/dL (6.4-8.2) Albumin 4.0 g/dL (3.4-5.0) Albumin/Globulin Ratio 1.2 (1.0-1.7) Ethyl Alcohol Level 55 mg/dL (0-10) Test 06/02/21 20:14 06/02/21 20:15 06/03/21 05:20 Glucose (Fingerstick) 77 mg/dL (70-99) Urine Collection Type Unknown Urine Color Yellow Urine Clarity Clear Urine pH 7.0 (<5.0-8.0) Urine Specific [place] 1.015 (1.000-1.030) Urine Protein Negative mg/dL (NEG-TRACE) Urine Glucose (UA) Negative mg/dL (NEG) Urine Ketones (Stick) Negative mg/dL (NEG) Urine Blood Negative (NEG) Urine Nitrite Negative (NEG) Urine Bilirubin Negative (NEG) Urine Urobilinogen Dipstick 0.2 mg/dL (0.2 mg/dL) Urine Leukocyte Esterase Negative (NEG) Urine RBC 1-2 /HPF (0-2) Urine WBC 1-4 /HPF (0-4) Urine Squamous Epithelial Cells Few /LPF Urine Bacteria Few /HPF (0-FEW) Urine Opiates Screen Neg (NEG) Urine Methadone Screen Neg (NEG) Urine Barbiturates Neg (NEG) Urine Phencyclidine Screen Neg (NEG) Urine Amphetamine/Methamphetamine Neg (NEG) Urine Benzodiazepines Screen Neg (NEG) Urine Cocaine Screen Pos (NEG) Urine Cannabinoids Screen Pos (NEG) Urine Ethyl Alcohol Pos (NEG) White Blood Count 6.6 x10^3/uL (4.0-11.0) Red Blood Count 4.36 x10^6/uL (4.30-5.70) Hemoglobin 11.4 g/dL (13.0-17.5) Hematocrit 34.3 % (39.0-53.0) Mean Corpuscular Volume 79 fL (79-100) Mean Corpuscular Hemoglobin 26 pg (25-35) Mean Corpuscular Hemoglobin Concent 33 g/dL (31-37) Red Cell Distribution Width 16.7 % (11.5-14.5) Platelet Count 229 x10^3/uL (140-400) Neutrophils (%) (Auto) 62 % (31-73) Lymphocytes (%) (Auto) 29 % (24-48) Monocytes (%) (Auto) 8 % (0-9) Eosinophils (%) (Auto) 1 % (0-3) Basophils (%) (Auto) 0 % (0-3) Neutrophils # (Auto) 4.1 x10^3/uL (1.8-7.7) Lymphocytes # (Auto) 1.9 x10^3/uL (1.0-4.8) Monocytes # (Auto) 0.5 x10^3/uL (0.0-1.1) Eosinophils # (Auto) 0.1 x10^3/uL (0.0-0.7) Basophils # (Auto) 0.0 x10^3/uL (0.0-0.2) Sodium Level 140 mmol/L (136-145) Potassium Level 3.9 mmol/L (3.5-5.1) Chloride Level 103 mmol/L (98-107) Carbon Dioxide Level 28 mmol/L (21-32) Anion Gap 9 (6-14) Blood Urea Nitrogen 17 mg/dL (8-26) Creatinine 1.1 mg/dL (0.7-1.3) Estimated GFR (Cockcroft-Gault) 79.4 BUN/Creatinine Ratio 15 (6-20) Glucose Level 166 mg/dL (70-99) Calcium Level 8.3 mg/dL (8.5-10.1) Iron Level 65 ug/dL (65-175) Total Iron Binding Capacity 214 ug/dL (250-450) Iron Saturation 30 % (15-34) Total Bilirubin 0.7 mg/dL (0.2-1.0) Aspartate Amino Transf (AST/SGOT) 15 U/L (15-37) Alanine Aminotransferase (ALT/SGPT) 20 U/L (16-63) Alkaline Phosphatase 41 U/L (46-116) Total Protein 6.6 g/dL (6.4-8.2) Albumin 3.5 g/dL (3.4-5.0) Albumin/Globulin Ratio 1.1 (1.0-1.7) Triglycerides Level 103 mg/dL (0-150) Cholesterol Level 145 mg/dL (0-200) LDL Cholesterol, Calculated 55 mg/dL (0-100) VLDL Cholesterol, Calculated 21 mg/dL (0-40) Non-HDL Cholesterol Calculated 76 mg/dL (0-129) HDL Cholesterol 69 mg/dL (40-60) Cholesterol/HDL Ratio 2.1 Assessment and Plan Assessmemt and Plan Problems Medical Problems: (1) Alcohol use Status: Acute (2) History of CVA (cerebrovascular accident) Status: Acute (3) TIA (transient ischemic attack) Status: Acute Comment Review of Relevant I have reviewed the following items tigre (where applicable) has been applied. Medications: Current Medications Medications (Trade) Dose Ordered Sig/Pablo Route PRN Reason Start Time Stop Time Status Last Admin Dose Admin Iohexol (Omnipaque 300 Mg/ml) 75 ml 1X ONCE IV 06/02/21 19:00 06/02/21 19:01 DC 06/02/21 19:12 Aspirin (Ecotrin) 325 mg 1X ONCE PO 06/02/21 19:30 06/02/21 19:31 DC 06/02/21 19:48 Hydralazine HCl (Apresoline Inj) 10 mg 1X ONCE IVP 06/02/21 19:30 06/02/21 19:31 DC 06/02/21 19:28 Dextrose/Sodium Chloride 1,000 ml @ 100 mls/hr Q10H IV 06/02/21 20:00 06/03/21 12:32 DC 06/02/21 21:25 Thiamine HCl 100 mg/Dextrose 51 ml @ 102 mls/hr 1X ONCE IV 06/02/21 21:00 06/02/21 21:29 DC 06/02/21 21:25 Vitamin B Complex/ Vitamin C (Imelda-Amber) 1 tab DAILY PO 06/02/21 20:00 06/03/21 09:00 Thiamine Mononitrate (Vitamin B-1) 100 mg DAILY PO 06/02/21 20:00 06/03/21 08:59 Aspirin (Ecotrin) 81 mg DAILY PO 06/03/21 09:00 06/03/21 08:59 Atorvastatin Calcium (Lipitor) 10 mg QHS PO 06/02/21 21:00 06/02/21 21:24 Carvedilol (Coreg) 6.25 mg BIDWMEALS PO 06/03/21 08:00 06/03/21 09:00 Famotidine (Pepcid) 20 mg DAILY PO 06/03/21 09:00 06/03/21 09:01 Lisinopril (Prinivil) 2.5 mg DAILY PO 06/03/21 09:00 06/03/21 09:00 Multivitamins (Thera M Plus) 1 tab DAILY PO 06/03/21 09:00 06/03/21 09:00 Justifications for Admission Other Justification CRICKET KOHLI MD Jun 03, 2021 15:40
--- NOTE | 2021-06-03 18:46 | PDOC2 ---
NEUROLOGY CONSULT Date of Service DOS: DATE: 06/03/21 TIME: 18:34 Identification/Chief Complaint Chief Complaint Jose Guadalupe Reina is a 71-year-old man who presented to [facility] via EMS because of a change in mental status. According to his daughter he had walked 4 miles to a friend's house and was drinking and smoking as he normally does. His friends called an ambulance because he became unresponsive. Patient recalls not being able to move or talk. He has had recent cognitive decline noted by his primary care physician at [facility]. Symptoms lasted up to 2 hours and then he was back to normal. He was improving in the emergency room. The initial NIH was 8 but went to 0. He feels completely back to his usual self. Past Medical History Cardiovascular: CAD, CHF, HTN, CT, Hyperlipidemia Pulmonary: COPD CENTRAL NERVOUS SYSTEM: CVA Musculoskeletal: Osteoarthritis Current Medications Current Medications Current Medications Iohexol (Omnipaque 300 Mg/ml) 75 ml 1X ONCE IV Last administered on 06/02/21at 19:12; Start 06/02/21 at 19:00; Stop 06/02/21 at 19:01; Status DC Info (CONTRAST GIVEN -- Rx MONITORING) 1 each PRN DAILY PRN MC SEE COMMENTS; Start 06/02/21 at 19:00; Stop 06/04/21 at 18:59 Aspirin (Ecotrin) 325 mg 1X ONCE PO Last administered on 06/02/21at 19:48; Start 06/02/21 at 19:30; Stop 06/02/21 at 19:31; Status DC Hydralazine HCl (Apresoline Inj) 10 mg 1X ONCE IVP Last administered on 06/02/21at 19:28; Start 06/02/21 at 19:30; Stop 06/02/21 at 19:31; Status DC Ondansetron HCl (Zofran) 4 mg PRN Q8HRS PRN IVP NAUSEA/VOMITING; Start 06/02/21 at 19:30; Stop 06/03/21 at 19:29 Dextrose/Sodium Chloride 1,000 ml @ 100 mls/hr Q10H IV Last administered on 06/02/21at 21:25; Start 06/02/21 at 20:00; Stop 06/03/21 at 12:32; Status DC Acetaminophen (Tylenol) 650 mg PRN Q6HRS PRN PO MILD PAIN / TEMP > 100.3'F; Start 06/02/21 at 19:30 Thiamine HCl 100 mg/Dextrose 51 ml @ 102 mls/hr 1X ONCE IV Last administered on 06/02/21at 21:25; Start 06/02/21 at 21:00; Stop 06/02/21 at 21:29; Status DC Vitamin B Complex/ Vitamin C (Imelda-Amber) 1 tab DAILY PO Last administered on 06/03/21at 09:00; Start 06/02/21 at 20:00 Thiamine Mononitrate (Vitamin B-1) 100 mg DAILY PO Last administered on 06/03/21at 08:59; Start 06/02/21 at 20:00 Lorazepam (Ativan Inj) 2 mg PRN Q1HR PRN IV For CIWA 8-14; Start 06/02/21 at 20:00 Lorazepam (Ativan Inj) 4 mg PRN Q1HR PRN IV For CIWA 15 or greater; Start 06/02/21 at 20:00 Aspirin (Ecotrin) 81 mg DAILY PO Last administered on 06/03/21at 08:59; Start 06/03/21 at 09:00 Atorvastatin Calcium (Lipitor) 10 mg QHS PO Last administered on 06/02/21at 21:24; Start 06/02/21 at 21:00 Carvedilol (Coreg) 6.25 mg BIDWMEALS PO Last administered on 06/03/21at 09:00; Start 06/03/21 at 08:00 Famotidine (Pepcid) 20 mg DAILY PO Last administered on 06/03/21at 09:01; Start 06/03/21 at 09:00 Lisinopril (Prinivil) 2.5 mg DAILY PO Last administered on 06/03/21at 09:00; Start 06/03/21 at 09:00 Multivitamins (Thera M Plus) 1 tab DAILY PO Last administered on 06/03/21at 09:00; Start 06/03/21 at 09:00 Active Scripts Active Famotidine 20 Mg Tablet 20 Mg PO DAILY Atorvastatin Calcium 10 Mg Tablet 10 Mg PO QHS Reported Vitamin D2 (Ergocalciferol (Vitamin D2)) 50 Mcg Tablet 50 Mcg PO DAILY Vitamin B-1 (Thiamine Mononitrate) 100 Mg Tablet 1 Tab PO DAILY 30 Days Spironolactone 25 Mg Tablet 1 Tab PO DAILY Prilosec Otc (Omeprazole Magnesium) 20 Mg Tablet.dr 1 Tab PO DAILY 30 Days Lisinopril 20 Mg Tablet 1 Tab PO DAILY Furosemide 20 Mg Tablet 1 Tab PO DAILY Donepezil Hcl 10 Mg Tablet 1 Tab PO DAILY Vitamin B-12 (Cyanocobalamin (Vitamin B-12)) 1,000 Mcg Tab.subl 1 Tab SL DAILY 30 Days Pylera Capsule (Bismuth/Metronid/Tetracycline) 1 Each Capsule 1 Each PO DAILY Folic Acid 1 Mg Tablet 1 Tab PO DAILY Coreg (Carvedilol) 6.25 Mg Tablet 1 Tab PO BID Multi-Day Vitamins (Multivitamin) 1 Each Tablet 1 Tab PO DAILY Aspir 81 (Aspirin) 81 Mg Tablet.dr 1 Tab PO DAILY Allergies Allergies: Coded Allergies: No Known Drug Allergies (Unverified , 12/27/14) ROS Review of System Constitutional: Negative Eyes: 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 HENT: Negative Respiratory: Negative Cardiovascular: Negative GI: Negative : Negative Musculoskeletal: He has joint pain. Neurologic: He had a spell up to 2 hours of confusion and unresponsiveness. Hematologic: Negative Lymphatic: Negative Psychiatric: He is a polysubstance abuser. Physical Exam Physical Examination He was alert, awake and cooperative. The speech was fluent and clear. He had a good fund of recent and remote knowledge. Attention and concentration was intact . He was well-groomed and well-nourished. He was fully oriented. Examination of the cranial nerves revealed visual pelletier were full to confrontation. Extraocular movements were intact. The eyes were conjugate. Pursuit movements were smooth and saccadic movements were without dysmetria. The pupils were 3 millimeters and reacted to light. There was no afferent pupillary defect. Fundu scopic examination did not reveal papilledema, exudate or hemorrhage. Facial sensation was intact. The muscles of mastication and facial expression were powerful symmetrically. Hearing was intact to finger rub. The palate arch symmetrically and the tongue was midline with full range of motion. Sternocleidomastoid and trapezius were powerful bilaterally. Muscle bulk and tone was normal. There was no arm drift or abnormal movement. The power was full and symmetric in the upper and lower extremities. Reflexes were 1/4 and symmetric in the upper and lower extremities but absent at the ankles. The toes were downgoing bilaterally. Coordination testing with finger to nose, heel to long, fine motor and rapid alternating movements was well performed. The sensory examination was intact to pain, light touch, proprioception, graphesthesia, cold thermal and vibration. There was no extinction to double simultaneous stimulation. The gait was of a normal base and unsteady walk. He was able to heel and toe walk. The Romberg stance was negative. Auscultation of the carotid arteries did not reveal a bruit. Heart rhythm was regular without a murmur. Per ipheral pulses are 2/4 at the wrists and feet. There was no edema or cyanosis of the extremities. Vitals VITALS Vital Signs Date Time Temp Pulse Resp B/P (MAP) Pulse Ox O2 Delivery O2 Flow Rate FiO2 06/03/21 16:02 50 98/61 06/03/21 15:00 97.6 18 99 Room Air 97.6 Labs Labs Laboratory Tests Test 06/02/21 17:53 06/02/21 17:55 06/02/21 18:15 06/02/21 19:19 Glucose (Fingerstick) 91 mg/dL (70-99) 59 mg/dL (70-99) Prothrombin Time 13.1 SEC (11.7-14.0) Prothromb Time International Ratio 1.0 (0.8-1.1) Activated Partial Thromboplast Time 21 SEC (24-38) White Blood Count 5.5 x10^3/uL (4.0-11.0) Red Blood Count 4.86 x10^6/uL (4.30-5.70) Hemoglobin 12.9 g/dL (13.0-17.5) Hematocrit 38.7 % (39.0-53.0) Mean Corpuscular Volume 80 fL (79-100) Mean Corpuscular Hemoglobin 27 pg (25-35) Mean Corpuscular Hemoglobin Concent 33 g/dL (31-37) Red Cell Distribution Width 16.7 % (11.5-14.5) Platelet Count 198 x10^3/uL (140-400) Neutrophils (%) (Auto) 67 % (31-73) Lymphocytes (%) (Auto) 26 % (24-48) Monocytes (%) (Auto) 5 % (0-9) Eosinophils (%) (Auto) 1 % (0-3) Basophils (%) (Auto) 1 % (0-3) Neutrophils # (Auto) 3.7 x10^3/uL (1.8-7.7) Lymphocytes # (Auto) 1.4 x10^3/uL (1.0-4.8) Monocytes # (Auto) 0.3 x10^3/uL (0.0-1.1) Eosinophils # (Auto) 0.0 x10^3/uL (0.0-0.7) Basophils # (Auto) 0.0 x10^3/uL (0.0-0.2) Sodium Level 143 mmol/L (136-145) Potassium Level 4.3 mmol/L (3.5-5.1) Chloride Level 104 mmol/L (98-107) Carbon Dioxide Level 28 mmol/L (21-32) Anion Gap 11 (6-14) Blood Urea Nitrogen 20 mg/dL (8-26) Creatinine 1.1 mg/dL (0.7-1.3) Estimated GFR (Cockcroft-Gault) 79.4 BUN/Creatinine Ratio 18 (6-20) Glucose Level 108 mg/dL (70-99) Calcium Level 8.9 mg/dL (8.5-10.1) Total Bilirubin 0.5 mg/dL (0.2-1.0) Aspartate Amino Transf (AST/SGOT) 20 U/L (15-37) Alanine Aminotransferase (ALT/SGPT) 22 U/L (16-63) Alkaline Phosphatase 44 U/L (46-116) Ammonia 11 mcmol/L (11-34) Troponin I High Sensitivity 8 ng/L (4-75) Total Protein 7.4 g/dL (6.4-8.2) Albumin 4.0 g/dL (3.4-5.0) Albumin/Globulin Ratio 1.2 (1.0-1.7) Ethyl Alcohol Level 55 mg/dL (0-10) Test 06/02/21 20:14 06/02/21 20:15 06/03/21 05:20 Glucose (Fingerstick) 77 mg/dL (70-99) Urine Collection Type Unknown Urine Color Yellow Urine Clarity Clear Urine pH 7.0 (<5.0-8.0) Urine Specific [place] 1.015 (1.000-1.030) Urine Protein Negative mg/dL (NEG-TRACE) Urine Glucose (UA) Negative mg/dL (NEG) Urine Ketones (Stick) Negative mg/dL (NEG) Urine Blood Negative (NEG) Urine Nitrite Negative (NEG) Urine Bilirubin Negative (NEG) Urine Urobilinogen Dipstick 0.2 mg/dL (0.2 mg/dL) Urine Leukocyte Esterase Negative (NEG) Urine RBC 1-2 /HPF (0-2) Urine WBC 1-4 /HPF (0-4) Urine Squamous Epithelial Cells Few /LPF Urine Bacteria Few /HPF (0-FEW) Urine Opiates Screen Neg (NEG) Urine Methadone Screen Neg (NEG) Urine Barbiturates Neg (NEG) Urine Phencyclidine Screen Neg (NEG) Urine Amphetamine/Methamphetamine Neg (NEG) Urine Benzodiazepines Screen Neg (NEG) Urine Cocaine Screen Pos (NEG) Urine Cannabinoids Screen Pos (NEG) Urine Ethyl Alcohol Pos (NEG) White Blood Count 6.6 x10^3/uL (4.0-11.0) Red Blood Count 4.36 x10^6/uL (4.30-5.70) Hemoglobin 11.4 g/dL (13.0-17.5) Hematocrit 34.3 % (39.0-53.0) Mean Corpuscular Volume 79 fL (79-100) Mean Corpuscular Hemoglobin 26 pg (25-35) Mean Corpuscular Hemoglobin Concent 33 g/dL (31-37) Red Cell Distribution Width 16.7 % (11.5-14.5) Platelet Count 229 x10^3/uL (140-400) Neutrophils (%) (Auto) 62 % (31-73) Lymphocytes (%) (Auto) 29 % (24-48) Monocytes (%) (Auto) 8 % (0-9) Eosinophils (%) (Auto) 1 % (0-3) Basophils (%) (Auto) 0 % (0-3) Neutrophils # (Auto) 4.1 x10^3/uL (1.8-7.7) Lymphocytes # (Auto) 1.9 x10^3/uL (1.0-4.8) Monocytes # (Auto) 0.5 x10^3/uL (0.0-1.1) Eosinophils # (Auto) 0.1 x10^3/uL (0.0-0.7) Basophils # (Auto) 0.0 x10^3/uL (0.0-0.2) Sodium Level 140 mmol/L (136-145) Potassium Level 3.9 mmol/L (3.5-5.1) Chloride Level 103 mmol/L (98-107) Carbon Dioxide Level 28 mmol/L (21-32) Anion Gap 9 (6-14) Blood Urea Nitrogen 17 mg/dL (8-26) Creatinine 1.1 mg/dL (0.7-1.3) Estimated GFR (Cockcroft-Gault) 79.4 BUN/Creatinine Ratio 15 (6-20) Glucose Level 166 mg/dL (70-99) Calcium Level 8.3 mg/dL (8.5-10.1) Iron Level 65 ug/dL (65-175) Total Iron Binding Capacity 214 ug/dL (250-450) Iron Saturation 30 % (15-34) Total Bilirubin 0.7 mg/dL (0.2-1.0) Aspartate Amino Transf (AST/SGOT) 15 U/L (15-37) Alanine Aminotransferase (ALT/SGPT) 20 U/L (16-63) Alkaline Phosphatase 41 U/L (46-116) Total Protein 6.6 g/dL (6.4-8.2) Albumin 3.5 g/dL (3.4-5.0) Albumin/Globulin Ratio 1.1 (1.0-1.7) Triglycerides Level 103 mg/dL (0-150) Cholesterol Level 145 mg/dL (0-200) LDL Cholesterol, Calculated 55 mg/dL (0-100) VLDL Cholesterol, Calculated 21 mg/dL (0-40) Non-HDL Cholesterol Calculated 76 mg/dL (0-129) HDL Cholesterol 69 mg/dL (40-60) Cholesterol/HDL Ratio 2.1 Laboratory Tests Test 06/02/21 19:19 06/02/21 20:14 06/02/21 20:15 06/03/21 05:20 Glucose (Fingerstick) 59 mg/dL (70-99) 77 mg/dL (70-99) Urine Collection Type Unknown Urine Color Yellow Urine Clarity Clear Urine pH 7.0 (<5.0-8.0) Urine Specific [place] 1.015 (1.000-1.030) Urine Protein Negative mg/dL (NEG-TRACE) Urine Glucose (UA) Negative mg/dL (NEG) Urine Ketones (Stick) Negative mg/dL (NEG) Urine Blood Negative (NEG) Urine Nitrite Negative (NEG) Urine Bilirubin Negative (NEG) Urine Urobilinogen Dipstick 0.2 mg/dL (0.2 mg/dL) Urine Leukocyte Esterase Negative (NEG) Urine RBC 1-2 /HPF (0-2) Urine WBC 1-4 /HPF (0-4) Urine Squamous Epithelial Cells Few /LPF Urine Bacteria Few /HPF (0-FEW) Urine Opiates Screen Neg (NEG) Urine Methadone Screen Neg (NEG) Urine Barbiturates Neg (NEG) Urine Phencyclidine Screen Neg (NEG) Urine Amphetamine/Methamphetamine Neg (NEG) Urine Benzodiazepines Screen Neg (NEG) Urine Cocaine Screen Pos (NEG) Urine Cannabinoids Screen Pos (NEG) Urine Ethyl Alcohol Pos (NEG) White Blood Count 6.6 x10^3/uL (4.0-11.0) Red Blood Count 4.36 x10^6/uL (4.30-5.70) Hemoglobin 11.4 g/dL (13.0-17.5) Hematocrit 34.3 % (39.0-53.0) Mean Corpuscular Volume 79 fL (79-100) Mean Corpuscular Hemoglobin 26 pg (25-35) Mean Corpuscular Hemoglobin Concent 33 g/dL (31-37) Red Cell Distribution Width 16.7 % (11.5-14.5) Platelet Count 229 x10^3/uL (140-400) Neutrophils (%) (Auto) 62 % (31-73) Lymphocytes (%) (Auto) 29 % (24-48) Monocytes (%) (Auto) 8 % (0-9) Eosinophils (%) (Auto) 1 % (0-3) Basophils (%) (Auto) 0 % (0-3) Neutrophils # (Auto) 4.1 x10^3/uL (1.8-7.7) Lymphocytes # (Auto) 1.9 x10^3/uL (1.0-4.8) Monocytes # (Auto) 0.5 x10^3/uL (0.0-1.1) Eosinophils # (Auto) 0.1 x10^3/uL (0.0-0.7) Basophils # (Auto) 0.0 x10^3/uL (0.0-0.2) Sodium Level 140 mmol/L (136-145) Potassium Level 3.9 mmol/L (3.5-5.1) Chloride Level 103 mmol/L (98-107) Carbon Dioxide Level 28 mmol/L (21-32) Anion Gap 9 (6-14) Blood Urea Nitrogen 17 mg/dL (8-26) Creatinine 1.1 mg/dL (0.7-1.3) Estimated GFR (Cockcroft-Gault) 79.4 BUN/Creatinine Ratio 15 (6-20) Glucose Level 166 mg/dL (70-99) Calcium Level 8.3 mg/dL (8.5-10.1) Iron Level 65 ug/dL (65-175) Total Iron Binding Capacity 214 ug/dL (250-450) Iron Saturation 30 % (15-34) Total Bilirubin 0.7 mg/dL (0.2-1.0) Aspartate Amino Transf (AST/SGOT) 15 U/L (15-37) Alanine Aminotransferase (ALT/SGPT) 20 U/L (16-63) Alkaline Phosphatase 41 U/L (46-116) Total Protein 6.6 g/dL (6.4-8.2) Albumin 3.5 g/dL (3.4-5.0) Albumin/Globulin Ratio 1.1 (1.0-1.7) Triglycerides Level 103 mg/dL (0-150) Cholesterol Level 145 mg/dL (0-200) LDL Cholesterol, Calculated 55 mg/dL (0-100) VLDL Cholesterol, Calculated 21 mg/dL (0-40) Non-HDL Cholesterol Calculated 76 mg/dL (0-129) HDL Cholesterol 69 mg/dL (40-60) Cholesterol/HDL Ratio 2.[address] head without contrast June 02, 2021 FINDINGS: There is no intracranial hemorrhage. There are multiple chronic infarcts. The largest cyst is within the left middle cerebral artery territory posteriorly measuring 4.5 x 2.6 cm. Multiple smaller infarcts are noted more anteriorly in the middle cerebral artery territories bilaterally. Another is noted in the right occipital/posterior temporal lobe. Additional chronic infarcts are noted within the cerebellar hemispheres on the right greater than left. The ventricles are normal in size and position. The visualized paranasal sinuses appear clear. The orbits are unremarkable. The temporal bones are unremarkable. The calvarium reveals no suspicious lesions. A lipoma along the occipital scalp measures 4.1 x 1.1 cm transaxially. IMPRESSION: 1. No intracranial hemorrhage. 2. Multiple small to moderate chronic infarcts throughout both middle cerebral artery territories, the right posterior cerebral artery territory, and the right greater than left cerebellar hemispheres. 3. Mild atrophy and chronic microangiopathic white matter change. CT angiogram head and neck June 02, 2021 FINDINGS: Angiographic findings: The aortic arch has a typical branching pattern. There is no arch vessel stenosis. Both common carotid arteries are patent without stenosis. Both internal carotid arteries are patent without stenosis. The external carotid systems are patent. The vertebral arteries are patent. The basilar artery is patent. Both posterior cerebral arteries are patent. The posterior communicating arteries are visualized. The intracranial internal carotid arteries demonstrate no stenosis. The middle cerebral arteries are patent. The anterior cerebral arteries are patent. The anterior communicating artery is visualized. Nonangiographic findings: There is no intracranial hemorrhage. Multiple chronic infarcts are noted within the left greater than right middle cerebral artery territories, the right temporal occipital lobe, and the right greater than left cerebellar hemispheres. Refer to today's CT for more detail. Prominence of the lateral ventricles and hemispheric sulci indicate mild atrophy. The paranasal sinuses appear clear. The orbits are unremarkable. The temporal bones are unremarkable. Bone windows reveal no suspicious lesions. The lung apices demonstrate no acute abnormality. The parotid glands and submandibular glands are unremarkable. The thyroid gland demonstrates no suspicious lesions. There are no laryngeal or pharyngeal masses. There are no pathologically enlarged lymph nodes. IMPRESSION: 1. No hemodynamically significant cervical arterial stenosis. 2. No intracranial stenosis, aneurysm or large vessel occlusion. 3. Minimal atherosclerotic changes for patient age. Correlate for source of showering emboli or in the distal microangiopathy as a cause of multiple bilateral chronic infarcts. Assessment/Plan Assessment/Plan Jose Guadalupe Reina is a 71-year-old man with imaging evidence of multiple previous strokes. The current CT scan does not reveal an acute process. It certainly concerning that he had neurologic symptoms that lasted up to 2 hours. I am relieved that the CT arteriogram of the head and neck was not revealing. He will be monitored on telemetry to determine his rhythm. He has risk factors with polysubstance abuse and smoking. He will need an echocardiogram to look for an embolic source. He has a history of a pacemaker implantation and then removal. I am concerned there may still be leads so I will not order MRI brain. Currently the neurologic examination was back to normal. We need to address vascular risk factors. KATARZYNA PORTILLO MD Jun 03, 2021 18:46
[2021-06-03 19:00] VITALS: BP 105/65
--- NOTE | 2021-06-03 19:15 | NUR ---
Pt in bed assessment completed vss poc explained pt denied pain at this time. Pt reminded to call for assistance prior to getting oob call light in reach will resume care and continue to monitor pt.
[2021-06-03] MEDS: ATORVASTATIN CALCIUM 10 MG TABLET. PO SCH (20:54)
[2021-06-03 22:00] VITALS: BP 108/72
[2021-06-04 02:53] VITALS: BP 115/70
[2021-06-04 07:00] VITALS: BP 122/79
[2021-06-04] MEDS: CARVEDILOL 6.25 MG TABLET. PO SCH (08:00)
[2021-06-04] MEDS: THIAMINE 100 MG TABLET. PO SCH (08:35)
[2021-06-04] MEDS: ASPIRIN ENTERIC COATED 81 MG TABLET.DR. PO SCH (08:36)
[2021-06-04] MEDS: LISINOPRIL 5 MG TABLET. PO SCH (08:36)
[2021-06-04] MEDS: FAMOTIDINE 20 MG TABLET. PO SCH (08:37)
[2021-06-04] MEDS: FOLIC/VIT B COMP W-C (RENAL) TABLET. PO SCH (08:37)
[2021-06-04] MEDS: MULTIVITAMIN with MINERAL TABLET. PO SCH (08:37)
--- NOTE | 2021-06-04 10:44 | PDOC ---
PROGRESS NOTES Date of Service DATE: 06/04/21 TIME: 10:40 Assessment Problems Medical Problems: (1) Alcohol use Status: Acute (2) History of CVA (cerebrovascular accident) Status: Acute (3) TIA (transient ischemic attack) Status: Acute Transient ischemic attack symptoms with negative work-up so far, probably related to polysubstance abuse and smoking. Plan Echocardiogram Rehabilitation modalities Risks outweigh benefits of MRI of the brain given possible retained pacemaker leads Aspirin and atorvastatin, but note favorable lipid profile Discharge later today if stable Counseled patient to avoid illicit substances Objective Vital Signs Date Time Temp Pulse Resp B/P (MAP) Pulse Ox O2 Delivery O2 Flow Rate FiO2 06/04/21 08:36 53 115/70 06/04/21 07:00 97.5 18 100 Room Air 97.5 Intake and Output 06/04/21 07:00 Intake Total 940 ml Output Total 420 ml Balance 520 ml Intake Oral 940 ml Output Urine Total 420 ml PHYSICAL EXAM Alert. Oriented to place and person. Off on date, has trouble naming the president. PERRL. EOMI. CN: no focal findings. Muscle tone: normal. Muscle strength: 5 -/5 DTR: 1+ Plantar reflex: Flexor Gait: not examined in bed. Sensory exam: no abnormal findings. No cerebellar signs elicited. Review of Relevant I have reviewed the following items tigre (where applicable) has been applied. Labs Laboratory Tests Test 06/02/21 17:53 06/02/21 17:55 06/02/21 18:15 06/02/21 19:19 Glucose (Fingerstick) 91 mg/dL (70-99) 59 mg/dL (70-99) Prothrombin Time 13.1 SEC (11.7-14.0) Prothromb Time International Ratio 1.0 (0.8-1.1) Activated Partial Thromboplast Time 21 SEC (24-38) White Blood Count 5.5 x10^3/uL (4.0-11.0) Red Blood Count 4.86 x10^6/uL (4.30-5.70) Hemoglobin 12.9 g/dL (13.0-17.5) Hematocrit 38.7 % (39.0-53.0) Mean Corpuscular Volume 80 fL (79-100) Mean Corpuscular Hemoglobin 27 pg (25-35) Mean Corpuscular Hemoglobin Concent 33 g/dL (31-37) Red Cell Distribution Width 16.7 % (11.5-14.5) Platelet Count 198 x10^3/uL (140-400) Neutrophils (%) (Auto) 67 % (31-73) Lymphocytes (%) (Auto) 26 % (24-48) Monocytes (%) (Auto) 5 % (0-9) Eosinophils (%) (Auto) 1 % (0-3) Basophils (%) (Auto) 1 % (0-3) Neutrophils # (Auto) 3.7 x10^3/uL (1.8-7.7) Lymphocytes # (Auto) 1.4 x10^3/uL (1.0-4.8) Monocytes # (Auto) 0.3 x10^3/uL (0.0-1.1) Eosinophils # (Auto) 0.0 x10^3/uL (0.0-0.7) Basophils # (Auto) 0.0 x10^3/uL (0.0-0.2) Sodium Level 143 mmol/L (136-145) Potassium Level 4.3 mmol/L (3.5-5.1) Chloride Level 104 mmol/L (98-107) Carbon Dioxide Level 28 mmol/L (21-32) Anion Gap 11 (6-14) Blood Urea Nitrogen 20 mg/dL (8-26) Creatinine 1.1 mg/dL (0.7-1.3) Estimated GFR (Cockcroft-Gault) 79.4 BUN/Creatinine Ratio 18 (6-20) Glucose Level 108 mg/dL (70-99) Calcium Level 8.9 mg/dL (8.5-10.1) Total Bilirubin 0.5 mg/dL (0.2-1.0) Aspartate Amino Transf (AST/SGOT) 20 U/L (15-37) Alanine Aminotransferase (ALT/SGPT) 22 U/L (16-63) Alkaline Phosphatase 44 U/L (46-116) Ammonia 11 mcmol/L (11-34) Troponin I High Sensitivity 8 ng/L (4-75) Total Protein 7.4 g/dL (6.4-8.2) Albumin 4.0 g/dL (3.4-5.0) Albumin/Globulin Ratio 1.2 (1.0-1.7) Ethyl Alcohol Level 55 mg/dL (0-10) Test 06/02/21 20:14 06/02/21 20:15 06/03/21 05:20 Glucose (Fingerstick) 77 mg/dL (70-99) Urine Collection Type Unknown Urine Color Yellow Urine Clarity Clear Urine pH 7.0 (<5.0-8.0) Urine Specific [place] 1.015 (1.000-1.030) Urine Protein Negative mg/dL (NEG-TRACE) Urine Glucose (UA) Negative mg/dL (NEG) Urine Ketones (Stick) Negative mg/dL (NEG) Urine Blood Negative (NEG) Urine Nitrite Negative (NEG) Urine Bilirubin Negative (NEG) Urine Urobilinogen Dipstick 0.2 mg/dL (0.2 mg/dL) Urine Leukocyte Esterase Negative (NEG) Urine RBC 1-2 /HPF (0-2) Urine WBC 1-4 /HPF (0-4) Urine Squamous Epithelial Cells Few /LPF Urine Bacteria Few /HPF (0-FEW) Urine Opiates Screen Neg (NEG) Urine Methadone Screen Neg (NEG) Urine Barbiturates Neg (NEG) Urine Phencyclidine Screen Neg (NEG) Urine Amphetamine/Methamphetamine Neg (NEG) Urine Benzodiazepines Screen Neg (NEG) Urine Cocaine Screen Pos (NEG) Urine Cannabinoids Screen Pos (NEG) Urine Ethyl Alcohol Pos (NEG) White Blood Count 6.6 x10^3/uL (4.0-11.0) Red Blood Count 4.36 x10^6/uL (4.30-5.70) Hemoglobin 11.4 g/dL (13.0-17.5) Hematocrit 34.3 % (39.0-53.0) Mean Corpuscular Volume 79 fL (79-100) Mean Corpuscular Hemoglobin 26 pg (25-35) Mean Corpuscular Hemoglobin Concent 33 g/dL (31-37) Red Cell Distribution Width 16.7 % (11.5-14.5) Platelet Count 229 x10^3/uL (140-400) Neutrophils (%) (Auto) 62 % (31-73) Lymphocytes (%) (Auto) 29 % (24-48) Monocytes (%) (Auto) 8 % (0-9) Eosinophils (%) (Auto) 1 % (0-3) Basophils (%) (Auto) 0 % (0-3) Neutrophils # (Auto) 4.1 x10^3/uL (1.8-7.7) Lymphocytes # (Auto) 1.9 x10^3/uL (1.0-4.8) Monocytes # (Auto) 0.5 x10^3/uL (0.0-1.1) Eosinophils # (Auto) 0.1 x10^3/uL (0.0-0.7) Basophils # (Auto) 0.0 x10^3/uL (0.0-0.2) Sodium Level 140 mmol/L (136-145) Potassium Level 3.9 mmol/L (3.5-5.1) Chloride Level 103 mmol/L (98-107) Carbon Dioxide Level 28 mmol/L (21-32) Anion Gap 9 (6-14) Blood Urea Nitrogen 17 mg/dL (8-26) Creatinine 1.1 mg/dL (0.7-1.3) Estimated GFR (Cockcroft-Gault) 79.4 BUN/Creatinine Ratio 15 (6-20) Glucose Level 166 mg/dL (70-99) Calcium Level 8.3 mg/dL (8.5-10.1) Iron Level 65 ug/dL (65-175) Total Iron Binding Capacity 214 ug/dL (250-450) Iron Saturation 30 % (15-34) Total Bilirubin 0.7 mg/dL (0.2-1.0) Aspartate Amino Transf (AST/SGOT) 15 U/L (15-37) Alanine Aminotransferase (ALT/SGPT) 20 U/L (16-63) Alkaline Phosphatase 41 U/L (46-116) Total Protein 6.6 g/dL (6.4-8.2) Albumin 3.5 g/dL (3.4-5.0) Albumin/Globulin Ratio 1.1 (1.0-1.7) Triglycerides Level 103 mg/dL (0-150) Cholesterol Level 145 mg/dL (0-200) LDL Cholesterol, Calculated 55 mg/dL (0-100) VLDL Cholesterol, Calculated 21 mg/dL (0-40) Non-HDL Cholesterol Calculated 76 mg/dL (0-129) HDL Cholesterol 69 mg/dL (40-60) Cholesterol/HDL Ratio 2.1 Medications Current Medications Iohexol (Omnipaque 300 Mg/ml) 75 ml 1X ONCE IV Last administered on 06/02/21at 19:12; Start 06/02/21 at 19:00; Stop 06/02/21 at 19:01; Status DC Info (CONTRAST GIVEN -- Rx MONITORING) 1 each PRN DAILY PRN MC SEE COMMENTS; Start 06/02/21 at 19:00; Stop 06/04/21 at 18:59 Aspirin (Ecotrin) 325 mg 1X ONCE PO Last administered on 06/02/21at 19:48; Start 06/02/21 at 19:30; Stop 06/02/21 at 19:31; Status DC Hydralazine HCl (Apresoline Inj) 10 mg 1X ONCE IVP Last administered on 06/02/21at 19:28; Start 06/02/21 at 19:30; Stop 06/02/21 at 19:31; Status DC Ondansetron HCl (Zofran) 4 mg PRN Q8HRS PRN IVP NAUSEA/VOMITING; Start 06/02/21 at 19:30; Stop 06/03/21 at 19:29; Status DC Dextrose/Sodium Chloride 1,000 ml @ 100 mls/hr Q10H IV Last administered on 06/02/21at 21:25; Start 06/02/21 at 20:00; Stop 06/03/21 at 12:32; Status DC Acetaminophen (Tylenol) 650 mg PRN Q6HRS PRN PO MILD PAIN / TEMP > 100.3'F; Start 06/02/21 at 19:30 Thiamine HCl 100 mg/Dextrose 51 ml @ 102 mls/hr 1X ONCE IV Last administered on 06/02/21at 21:25; Start 06/02/21 at 21:00; Stop 06/02/21 at 21:29; Status DC Vitamin B Complex/ Vitamin C (Imelda-Amber) 1 tab DAILY PO Last administered on 06/04/21at 08:37; Start 06/02/21 at 20:00 Thiamine Mononitrate (Vitamin B-1) 100 mg DAILY PO Last administered on 06/04/21at 08:35; Start 06/02/21 at 20:00 Lorazepam (Ativan Inj) 2 mg PRN Q1HR PRN IV For CIWA 8-14; Start 06/02/21 at 20:00 Lorazepam (Ativan Inj) 4 mg PRN Q1HR PRN IV For CIWA 15 or greater; Start 06/02/21 at 20:00 Aspirin (Ecotrin) 81 mg DAILY PO Last administered on 06/04/21at 08:36; Start 06/03/21 at 09:00 Atorvastatin Calcium (Lipitor) 10 mg QHS PO Last administered on 06/03/21at 20:54; Start 06/02/21 at 21:00 Carvedilol (Coreg) 6.25 mg BIDWMEALS PO Last administered on 06/03/21at 09:00; Start 06/03/21 at 08:00 Famotidine (Pepcid) 20 mg DAILY PO Last administered on 06/04/21at 08:37; Start 06/03/21 at 09:00 Lisinopril (Prinivil) 2.5 mg DAILY PO Last administered on 06/04/21at 08:36; Start 06/03/21 at 09:00 Multivitamins (Thera M Plus) 1 tab DAILY PO Last administered on 06/04/21at 08 :37; Start 06/03/21 at 09:00 Active Scripts Active Famotidine 20 Mg Tablet 20 Mg PO DAILY Atorvastatin Calcium 10 Mg Tablet 10 Mg PO QHS Reported Vitamin D2 (Ergocalciferol (Vitamin D2)) 50 Mcg Tablet 50 Mcg PO DAILY Vitamin B-1 (Thiamine Mononitrate) 100 Mg Tablet 1 Tab PO DAILY 30 Days Spironolactone 25 Mg Tablet 1 Tab PO DAILY Prilosec Otc (Omeprazole Magnesium) 20 Mg Tablet.dr 1 Tab PO DAILY 30 Days Lisinopril 20 Mg Tablet 1 Tab PO DAILY Furosemide 20 Mg Tablet 1 Tab PO DAILY Donepezil Hcl 10 Mg Tablet 1 Tab PO DAILY Vitamin B-12 (Cyanocobalamin (Vitamin B-12)) 1,000 Mcg Tab.subl 1 Tab SL DAILY 30 Days Pylera Capsule (Bismuth/Metronid/Tetracycline) 1 Each Capsule 1 Each PO DAILY Folic Acid 1 Mg Tablet 1 Tab PO DAILY Coreg (Carvedilol) 6.25 Mg Tablet 1 Tab PO BID Multi-Day Vitamins (Multivitamin) 1 Each Tablet 1 Tab PO DAILY Aspir 81 (Aspirin) 81 Mg Tablet.dr 1 Tab PO DAILY Vitals/I & O Vital Sign - Last 24 Hours 06/03/21 06/03/21 06/03/21 06/03/21 15:00 16:02 19:00 19:15 Temp 97.6 98.0 97.6 98.0 Pulse 64 50 63 Resp 18 16 B/P (MAP) 98/61 (73) 98/61 105/65 (78) Pulse Ox 99 98 O2 Delivery Room Air Room Air Room Air 06/03/21 06/04/21 06/04/21 06/04/21 22:00 02:53 07:00 08:00 Temp 98.0 98.2 97.5 98.0 98.2 97.5 Pulse 61 53 54 53 Resp 18 18 18 B/P (MAP) 108/72 (84) 115/70 (85) 122/79 (93) 115/70 Pulse Ox 98 99 100 O2 Delivery Room Air Room Air Room Air 06/04/21 08:36 Pulse 53 B/P (MAP) 115/70 Intake and Output 06/03/21 06/03/21 06/04/21 15:00 23:00 07:00 Intake Total 300 ml 640 ml 0 ml Output Total 320 ml 100 ml Balance -20 ml 640 ml -[address] head without contrast June 02, 2021 FINDINGS: There is no intracranial hemorrhage. There are multiple chronic infarcts. The largest cyst is within the left middle cerebral artery territory posteriorly measuring 4.5 x 2.6 cm. Multiple smaller infarcts are noted more anteriorly in the middle cerebral artery territories bilaterally. Another is noted in the right occipital/posterior temporal lobe. Additional chronic infarcts are noted within the cerebellar hemispheres on the right greater than left. The ventricles are normal in size and position. The visualized paranasal sinuses appear clear. The orbits are unremarkable. The temporal bones are unremarkable. The calvarium reveals no suspicious lesions. A lipoma along the occipital scalp measures 4.1 x 1.1 cm transaxially. IMPRESSION: 1. No intracranial hemorrhage. 2. Multiple small to moderate chronic infarcts throughout both middle cerebral artery territories, the right posterior cerebral artery territory, and the right greater than left cerebellar hemispheres. 3. Mild atrophy and chronic microangiopathic white matter change. CT angiogram head and neck June 02, 2021 FINDINGS: Angiographic findings: The aortic arch has a typical branching pattern. There is no arch vessel stenosis. Both common carotid arteries are patent without stenosis. Both internal carotid arteries are patent without stenosis. The external carotid systems are patent. The vertebral arteries are patent. The basilar artery is patent. Both posterior cerebral arteries are patent. The posterior communicating arteries are visualized. The intracranial internal carotid arteries demonstrate no stenosis. The middle cerebral arteries are patent. The anterior cerebral arteries are patent. The anterior communicating artery is visualized. Nonangiographic findings: There is no intracranial hemorrhage. Multiple chronic infarcts are noted within the left greater than right middle cerebral artery territories, the right temporal occipital lobe, and the right greater than left cerebellar hemispheres. Refer to today's CT for more detail. Prominence of the lateral ventricles and hemispheric sulci indicate mild atrophy. The paranasal sinuses appear clear. The orbits are unremarkable. The temporal bones are unremarkable. Bone windows reveal no suspicious lesions. The lung apices demonstrate no acute abnormality. The parotid glands and submandibular glands are unremarkable. The thyroid gland demonstrates no suspicious lesions. There are no laryngeal or pharyngeal masses. There are no pathologically enlarged lymph nodes. IMPRESSION: 1. No hemodynamically significant cervical arterial stenosis. 2. No intracranial stenosis, aneurysm or large vessel occlusion. 3. Minimal atherosclerotic changes for patient age. Correlate for source of showering emboli or in the distal microangiopathy as a cause of multiple bilat eral chronic infarcts. Justicifation of Admission Dx: Justifications for Admission: Justification of Admission Dx: N/A JAELYN MORGAN MD Jun 04, 2021 10:44
[2021-06-04] MEDS ORDERED: LISI5TAB15 PO (10:57)
--- NOTE | 2021-06-04 10:58 | SNU/HH DC ---
DISCHARGE WITH HOME HEALTH DISCHARGE INFORMATION: Final Diagnosis: Problems Medical Problems: (1) Alcohol use Status: Acute (2) History of CVA (cerebrovascular accident) Status: Acute (3) TIA (transient ischemic attack) Status: Acute Condition on Discharge: Stable CODE STATUS: Code Status: Full HOME HEALTH: Face to Face: I certify this patient is under my care and that I, or a nurse practitioner or physician's assistant women's rowing coach working with me, had a face to face encounter that meets the physician face to face encounter requirements with this patient on []. Medical Complications: Other (TIA weakness) Senior Living For: Assess & Educate Safety RN For Eval/Treatment: Yes Physical Therapy For: Evalulation/Treatment Occupational Therapy For: Evaluation/Treatment Home Health Aide For: Self-care BOX ANNEALER For: Community Resources Pt Meets Homebound Status: Unsteady balance w/ amb, POST DISCHARGE ORDERS: Activity Instructions for Disc: No restrictions DIET AFTER DISCHARGE: Cardiac TREATMENT/EQUIPMENT ORDERS: Adaptive Equipment Issued: None CERTIFICATION STATEMENT: Certification Statement: Certification Statement: Based on the above finding, I certify that this patient is confined to the home and needs intermittent care home care, physical therapy and/or speech therapy, or continues to need occupational therapy.~ This patient is under my care, and I have initiated the establishment of the plan of care.~ This patient will be followed by myself or a community physician who will periodically review the plan of care. Home Meds Active Scripts Lisinopril (LISINOPRIL) 5 Mg Tablet, 2.5 MG PO DAILY for . for 30 Days, #15 TAB Prov:MERRILL LYON III DO 06/04/21 Famotidine (FAMOTIDINE) 20 Mg Tablet, 20 MG PO DAILY, #30 Prov:GILMER RAO MD 03/28/15 Atorvastatin Calcium (ATORVASTATIN CALCIUM) 10 Mg Tablet, 10 MG PO QHS, #30 Prov:GILMER RAO MD 03/28/15 Reported Medications Ergocalciferol (Vitamin D2) (Vitamin D2) 50 Mcg Tablet, 50 MCG PO DAILY for supplement, TAB 06/02/21 Thiamine Mononitrate (VITAMIN B-1) 100 Mg Tablet, 1 TAB PO DAILY for supplement for 30 Days, #30 TAB 0 Refills 06/02/21 Spironolactone (SPIRONOLACTONE) 25 Mg Tablet, 1 TAB PO DAILY for diuretic, #90 TAB 1 Refill 06/02/21 Omeprazole Magnesium (PRILOSEC OTC) 20 Mg Tablet.dr, 1 TAB PO DAILY for gerd for 30 Days, #30 TAB 0 Refills 06/02/21 Furosemide (FUROSEMIDE) 20 Mg Tablet, 1 TAB PO DAILY for chf, #90 TAB 1 Refill 06/02/21 Donepezil Hcl (DONEPEZIL HCL) 10 Mg Tablet, 1 TAB PO DAILY for mental function, #90 TAB 1 Refill 06/02/21 Cyanocobalamin (Vitamin B-12) (VITAMIN B-12) 1,000 Mcg Tab.subl, 1 TAB SL DAILY for supplement for 30 Days, #30 TAB 0 Refills 06/02/21 Bismuth/Metronid/Tetracycline (PYLERA CAPSULE) 1 Each Capsule, 1 EACH PO DAILY for gerd, CAP 06/02/21 Folic Acid (FOLIC ACID) 1 Mg Tablet, 1 TAB PO DAILY, #90 TAB 1 Refill 01/02/15 Carvedilol (COREG ) 6.25 Mg Tablet, 1 TAB PO BID, #180 TAB 1 Refill 01/02/15 Multivitamin (MULTI-DAY VITAMINS) 1 Each Tablet, 1 TAB PO DAILY, #30 TAB 12/28/14 Aspirin (ASPIR 81) 81 Mg Tablet., 1 TAB PO DAILY, #30 TAB 5 Refills 12/28/14 Discontinued Reported Medications Lisinopril (LISINOPRIL) 20 Mg Tablet, 1 TAB PO DAILY for blood pressure, #30 TAB 5 Refills 06/02/21 MERRILL LYON III DO Jun 04, 2021 10:58
[2021-06-04 11:00] VITALS: BP 121/78
--- NOTE | 2021-06-04 11:52 | NUR ---
SS following for discharge planning. SS reviewed pt chart and discussed with pt RN. Pt is from home and is currently on room air. PO diet. PT/OT recommended home. Discharge orders received for home with home healthcare. SS met with pt and discussed discharge planning and home with home healthcare. Pt declining home healthcare at this time. Pt's RN notified.
[2021-06-04 15:00] VITALS: BP 121/88
--- NOTE | 2021-06-05 12:46 | DS ---
DATE OF DISCHARGE: 06/04/2021 ADMISSION DIAGNOSIS: Transient ischemic attack. DISCHARGE DIAGNOSES: Resolving transient ischemic attack, previous stroke, alcohol disorder, history of cocaine abuse, hypoglycemia, tobacco abuse, weakness and cognitive decline with dementia. HOSPITAL COURSE: The patient is a pleasant middle-aged male who presented with some neurologic symptoms. We were concerned, he could have a stroke. He has a complex medical history including cocaine and hypertension. We did physical therapy and occupational therapy, and consulted Neurology. His symptoms seemed to resolve. He got back to his baseline. Yesterday, I saw and examined him. We discharged to home. DISPOSITION: Home. ACTIVITY: As tolerated. DIET: Low-sodium. DISCHARGE MEDICATIONS: Please see the MRAD. TOTAL TIME: Thirty-two minutes. VAHID/ENRIQUETA DR: Giles TID: [id number]
== END 2021-06-04 18:30 | disposition home or self-care (01) | DRG 69 ==
LOC: ER 17:38 → INTOOBSV 18:50 → 6 SOUTH 18:50 → OBSVTOIN 06-04 11:57
PROVIDERS: ADMIT Internal Medicine; ATTEND Internal Medicine
DX: G45.9 Transient cerebral ischemic attack, unspecified (principal); R47.01 Aphasia; E16.2 Hypoglycemia, unspecified; E78.00 Pure hypercholesterolemia, unspecified; E78.5 Hyperlipidemia, unspecified; F01.50 Vascular dementia, unspecified severity, without behavioral disturbance, psychotic disturbance, mood disturbance, and anxiety; F12.90 Cannabis use, unspecified, uncomplicated; F14.10 Cocaine abuse, uncomplicated; F17.210 Nicotine dependence, cigarettes, uncomplicated; I11.0 Hypertensive heart disease with heart failure; I25.10 Atherosclerotic heart disease of native coronary artery without angina pectoris; I48.91 Unspecified atrial fibrillation; I50.9 Heart failure, unspecified; J44.9 Chronic obstructive pulmonary disease, unspecified; R29.708 NIHSS score 8; Z82.49 Family history of ischemic heart disease and other diseases of the circulatory system; Z86.73 Personal history of transient ischemic attack (TIA), and cerebral infarction without residual deficits; Z87.11 Personal history of peptic ulcer disease; Z90.49 Acquired absence of other specified parts of digestive tract; Z95.0 Presence of cardiac pacemaker; M19.90 Unspecified osteoarthritis, unspecified site; I25.2 Old myocardial infarction
CPT/HCPCS: 36415; 70450; 70496; 70498; 71045; 80053; 80061; 80307; 81001; 82140; 82607; 82962; 83540; 83550; 84484; 85025; 85610; 85730; 93005; 93306; 96374; G0378; G0379; G0480; J0360; J3411; J7042; J7060; Q9967; 92610-GN; 97530-GO; 99285-25; C8929